=== PATIENT | female | born 1970 | race Caucasian/White ===

== ENCOUNTER 2019-07-07 21:07 | Emergency (ER) | payer SELFPAY ==
[~2019-07-07] VITALS: Ht 167.6 cm; Wt 69.0 kg
[2019-07-07] MEDS ORDERED: SODIUM CHLORIDE 0.9% 1,000 ML IV ONE ×2 (21:38→22:29)
[2019-07-07] MEDS ORDERED: ONDANSETRON HCL 4MG/2ML INJ IV STA ×2 (21:38→22:29)
[2019-07-07] MEDS ORDERED: KETOROLAC 30MG/ML VIAL IV STA (22:29)
[2019-07-07] MEDS ORDERED: MORPHINE SULFATE 4 MG/ML CPJ (NOT FOR IM USE) IV STA (22:29)
[2019-07-07 22:47] LABS: HEMATOCRIT. 38.2 % (36.0-48.0); HEMOGLOBIN. 13.1 g/dL (12.0-16.0); MEAN CORPUSCULAR HEMOGLOBIN 31.5 pg (28.0-32.0); MEAN CORPUSCULAR VOLUME 92.3 fL (81.0-99.0); MEAN PLATELET VOLUME 8.1 fl (7.4-10.4); PLATELET 179 x1000/uL (130-400); RED BLOOD CELL COUNT 4.14 mill/uL (4.2-5.4); RED CELL DISTRIBUTION WIDTH 13.4 % (11.6-14.6)
[2019-07-07 22:54] LABS: CHLORIDE 105 mEq/L (98-107)
[2019-07-07 23:19] LABS: PLATELET ESTIMATE NORMAL
[2019-07-07 23:53] LABS: ETHANOL BLOOD < 10 mg/dL
[2019-07-08] LABS: HCG SCREEN NEGATIVE
[2019-07-08 03:22] VITALS: BP 98/50
== END 2019-07-08 03:23 | disposition home or self-care (01) ==
LOC: ER 21:07
DX: R10.84 Generalized abdominal pain (principal); R11.2 Nausea with vomiting, unspecified; R19.7 Diarrhea, unspecified; F90.9 Attention-deficit hyperactivity disorder, unspecified type
CPT/HCPCS: 36415; 71045; 74176; 80053; 80320; 83605; 83690; 83880; 84484; 84703; 85025; 87040; 93005; 96361; 96374; 96375; 99284; J1885; J2270; J2405; J7030; G0480